=== PATIENT | female | born 1950 | race Two or more races ===

== ENCOUNTER 2020-07-02 16:30 | Inpatient (IN) | payer MEDICAID ==
[~2020-07-02] VITALS: Ht 157.5 cm; Wt 92.7 kg
[~2020-07-02 16:30] MED LIST: METF-415 PO
[2020-07-02] MEDS ORDERED: MORPHINE SULFATE 4 MG/ML CPJ (NOT FOR IM USE) IV STA (17:43)
[2020-07-02] MEDS ORDERED: ONDANSETRON HCL 4MG/2ML INJ IV STA (17:43)
[2020-07-02] MEDS ORDERED: SODIUM CHLORIDE 0.9% 1,000 ML IV ONE (17:43)
[2020-07-02 18:00] LABS: BASOPHILS % 1.2 % (0.0-2.0); EOSINOPHILS % 2.5 % (0.0-5.0); HEMATOCRIT. 36.7 % (36.0-48.0); HEMOGLOBIN. 12.1 g/dL (12.0-16.0); LYMPHOCYTES % 24.8 % (20.0-50.0); MEAN CORPUSCULAR HEMOGLOBIN 29.5 pg (28.0-32.0); MEAN CORPUSCULAR VOLUME 89.6 fL (81.0-99.0); MEAN PLATELET VOLUME 8.1 fl (7.4-10.4); MONOCYTES % 4.7 % (2.0-8.0); NEUTROPHILS % 66.8 % (40.0-76.0); PLATELET 337 x1000/uL (130-400); RED CELL DISTRIBUTION WIDTH 14.2 % (11.6-14.6)
[2020-07-02 18:08] LABS: CHLORIDE 105 mEq/L (98-107)
[2020-07-02 18:11] LABS: PARTIAL THROMBOPLASTIN TIME 27.7 sec (23.4-31.0); PROTHROMBIN TIME 10.6 sec (9.6-11.0)
[2020-07-02] MEDS ORDERED: ASPIRIN 81MG TABLET PO ONE (21:00)
[2020-07-02] MEDS ORDERED: ACETAMINOPHEN 325MG TABLET PO PRN (22:00)
[2020-07-02] MEDS ORDERED: MORPHINE SULFATE 2 MG/ML CPJ (NOT FOR IM USE) IV PRN (22:00)
[2020-07-02] MEDS ORDERED: IPRATROPIUM/ALBUTEROL 0.5-3(2.5)MG/3ML NEB HHN PRN (22:00)
[2020-07-02] MEDS ORDERED: ZOLPIDEM TARTRATE 5MG TABLET PO PRN (22:00)
[2020-07-02 23:51] VITALS: BP 138/76
[2020-07-02] MEDS ORDERED: ESCI10TA61 PO (23:51)
[2020-07-02] MEDS ORDERED: ASPI-986 PO (23:51)
[2020-07-02] MEDS ORDERED: LOSA50TA41 PO (23:51)
[2020-07-02] MEDS ORDERED: METF-416 PO (23:51)
[2020-07-02] MEDS ORDERED: ATOR40TA70 PO (23:51)
[2020-07-02] MEDS ORDERED: GLIM2TAB30 PO (23:51)
[2020-07-03] VITALS: BP 127/48
[2020-07-03] MEDS ORDERED: DEXTROSE 50% WATER 50ML SYRINGE IV PRN (03:15)
[2020-07-03 04:00] VITALS: BP 139/81
[2020-07-03] MEDS: BLOOD SUGAR DIAGNOSTIC STRIP TEST SCH ×2 (06:50→12:37)
[2020-07-03] MEDS: INSULIN LISPRO 100 UNITS/ML SUBCUT SCH ×2 (07:47→12:37)
[2020-07-03 08:05] VITALS: BP 139/44
[2020-07-03 08:11] LABS: BASOPHILS % 0.9 % (0.0-2.0); EOSINOPHILS % 3.1 % (0.0-5.0); HEMATOCRIT. 35.6 % (36.0-48.0); HEMOGLOBIN. 11.7 g/dL (12.0-16.0); LYMPHOCYTES % 22.6 % (20.0-50.0); MEAN CORPUSCULAR HEMOGLOBIN 29.5 pg (28.0-32.0); MEAN CORPUSCULAR VOLUME 89.9 fL (81.0-99.0); MEAN PLATELET VOLUME 8.8 fl (7.4-10.4); MONOCYTES % 4.9 % (2.0-8.0); NEUTROPHILS % 68.5 % (40.0-76.0); PLATELET 316 x1000/uL (130-400); RED BLOOD CELL COUNT 3.96 mill/uL (4.2-5.4); RED CELL DISTRIBUTION WIDTH 14.6 % (11.6-14.6)
[2020-07-03 09:00] LABS: CHLORIDE 103 mEq/L (98-107)
[2020-07-03] MEDS ORDERED: ENOXAPARIN 40MG/0.4ML SYR SUBCUT SCH (09:00)
[2020-07-03 11:54] VITALS: BP 143/54
[2020-07-03 14:46] VITALS: BP 143/54
[2020-07-03] MEDS ORDERED: ASPI-1158 PO (15:18)
[2020-07-03 16:21] VITALS: BP 135/53
== END 2020-07-03 17:50 | disposition short-term general hospital (02) | DRG 340 ==
LOC: ER 16:30 → 6WST 20:51 → EDBEDREQTM 20:53 → EDBEDREQ 20:53 → ENRESERV 21:10
PROVIDERS: ADMIT Ophthalmology; ATTEND Ophthalmology
DX: S72.101A Unspecified trochanteric fracture of right femur, initial encounter for closed fracture (principal); W01.0XXA Fall on same level from slipping, tripping and stumbling without subsequent striking against object, initial encounter; E11.9 Type 2 diabetes mellitus without complications; E66.01 Morbid (severe) obesity due to excess calories; I10 Essential (primary) hypertension; Y93.89 Activity, other specified; Y92.098 Other place in other non-institutional residence as the place of occurrence of the external cause; Y99.8 Other external cause status; Z86.73 Personal history of transient ischemic attack (TIA), and cerebral infarction without residual deficits; Z79.84 Long term (current) use of oral hypoglycemic drugs; Z68.37 Body mass index [BMI] 37.0-37.9, adult
CPT/HCPCS: 36415; 71045; 73502; 73552; 73560; 80048; 80053; 82962; 83036; 83880; 84484; 85025; 93005; 99285; J1650; J2270; J7030